=== PATIENT | male | born 2000 | race Caucasian/White ===

== ENCOUNTER 2020-06-03 15:24 | Emergency (ER) | payer OTHER ==
[~2020-06-03] VITALS: Ht 175.3 cm; Wt 61.2 kg
[2020-06-03] MEDS ORDERED: SULFAMETH/TRIMETH DS 800/160MG 1 TAB PO ONE (15:35)
[2020-06-03] MEDS ORDERED: cephALEXin 500 MG CAP PO ONE (15:35)
[2020-06-03] MEDS ORDERED: ACETAMINOPHEN EXTRA STRENGTH 500 MG TAB ONE (15:47)
[2020-06-03 15:49] VITALS: BP 113/69
[2020-06-03 15:51] VITALS: BP 113/69
[2020-06-03] MEDS ORDERED: ACETAMINOPHEN EXTRA STRENGTH 500 MG TAB PO ONE (15:55)
--- NOTE | 2020-06-03 16:30 | NUR ---
pt eloped without d/c paperwork. Dr. James made aware.
== END 2020-06-03 16:30 | disposition left against medical advice (07) ==
LOC: MED 15:24
DX: L03.313 Cellulitis of chest wall (principal); J32.9 Chronic sinusitis, unspecified
CPT/HCPCS: 99284

== ENCOUNTER 2020-06-05 12:15 | Emergency (ER) | payer OTHER ==
--- NOTE | 2020-06-05 12:50 | NUR ---
PT CALLED FOR TRIAGE NO ANSWER.
== END 2020-06-05 12:50 | disposition left against medical advice (07) ==
LOC: MED 12:15
DX: Z53.21 Procedure and treatment not carried out due to patient leaving prior to being seen by health care provider (principal)